=== PATIENT | male | born 1955 | race Caucasian/White ===

== ENCOUNTER 2019-04-27 11:51 | Emergency (ER) | payer MEDICARE, OTHER ==
[~2019-04-27] VITALS: Ht 185.4 cm; Wt 109.3 kg
--- NOTE | 2019-04-27 12:07 | NUR ---
PT BIB SELF C/O RUE SHOOTING PAIN, NUMBNESS TO FINGERS X 2 DAYS. PT IS AAOX4, NOT IN RESPIRATORY DISTRESS, HOOKED TO MONITOR, KEPT RESTED AND COMFORTABLE, WILL CONTINUE TO MONITOR.
--- NOTE | 2019-04-27 12:15 | NUR ---
SEEN AND EXAMINED BY JAKI LOGAN
[2019-04-27] MEDS ORDERED: IBUPROFEN 600 MG TABLET PO ONE ×2 (12:19→12:30)
--- NOTE | 2019-04-27 12:20 | NUR ---
IV LINE ESTABLISHED, BLOOD DRAWN AND SENT TO LAB.
[2019-04-27 12:31] LABS: BASOPHILS # (AUTO) 0.1 /CMM (0.0-0.2); EOSINOPHILS % (AUTO) 2.8 % (0.0-6.0); HEMATOCRIT 41 % (39-51); HEMOGLOBIN 13.4 g/dL (13.5-17.5); LYMPHOCYTES # (AUTO) 1.2 /CMM (0.8-4.8); LYMPHOCYTES % (AUTO) 20.6 % (20.0-44.0); MEAN CORPUSCULAR HGB CONC 32 g/dl (31.0-36.0); MEAN CORPUSCULAR VOLUME 84 fL (80-96); MONOCYTES # (AUTO) 0.4 /CMM (0.1-1.30); MONOCYTES % (AUTO) 6.2 % (2.0-12.0); NEUTROPHILS # (AUTO) 4.2 /CMM (1.8-8.9); NEUTROPHILS % (AUTO) 69.4 % (43.0-81.0); PLATELET COUNT (AUTO) 217 /CMM (150-450); RED BLOOD CELL COUNT(AUTO) 4.93 MIL/uL (4.5-6.0)
[2019-04-27 12:39] LABS: CALCIUM, SERUM 8.6 mg/dL (8.5-10.1); CARBON DIOXIDE 28 mmol/L (21-32); CHLORIDE 95 mmol/L (98-107); CREATININE 1.2 mg/dL (0.6-1.3); GLUCOSE 114 mg/dL (74-106); SODIUM SERUM 131 mmol/L (136-145); UREA NITROGEN, BLOOD 13 mg/dL (7-18)
--- NOTE | 2019-04-27 12:41 | NUR ---
PT IS WHEELED TO CT SCAN VIA [facility].
[2019-04-27 12:50] LABS: ALANINE AMINOTRANSFERASE 32 U/L (12-78); ALBUMIN 3.5 g/dL (3.4-5.0); ALKALINE PHOSPHATASE 111 U/L (46-116); ASPARTATE AMINOTRANSFERASE 80 U/L (15-37); BILIRUBIN,DIRECT 0.1 mg/dL (0.0-0.2); BILIRUBIN,TOTAL 0.4 mg/dL (0.2-1.0); TOTAL PROTEIN, SERUM 7.1 g/dL (6.4-8.2)
[2019-04-27] MEDS ORDERED: IV NS 0.9% 1,000 ML BAG IV ONE (13:00)
[2019-04-27] MEDS ORDERED: TRAMADOL HCL 50 MG TABLET PO ONE (13:30)
[2019-04-27] MEDS ORDERED: TRAMADOL HCL 50 MG TABLET ONE (13:31)
[2019-04-27 14:09] VITALS: BP 128/81
--- NOTE | 2019-04-27 14:09 | NUR ---
IV removed. Catheter intact and site benign. Pressure and 4x4 applied to site. No bleeding noted. Patient discharged to home in stable condition. Written and verbal after care instructions given. Patient verbalizes understanding of instruction.
== END 2019-04-27 14:11 | disposition home or self-care (01) ==
LOC: ER 11:56
DX: M54.12 Radiculopathy, cervical region (principal); Z88.6 Allergy status to analgesic agent
CPT/HCPCS: 36415; 71045; 72050; 80048; 80076; 84484; 85025; 93005; 99285; J7030

== ENCOUNTER 2019-04-28 10:17 | Emergency (ER) | payer MEDICARE, OTHER ==
[~2019-04-28] VITALS: Ht 185.4 cm; Wt 108.9 kg
[2019-04-28 10:20] VITALS: BP 146/87
[2019-04-28] MEDS ORDERED: LORAZEPAM INJ 2 MG/ML VIAL ONE (11:27)
[2019-04-28] MEDS ORDERED: KETOROLAC TROMETHAMINE INJ 60 MG/2 ML VIAL IM ONE ×2 (11:27→11:30)
[2019-04-28] MEDS ORDERED: LORAZEPAM INJ 2 MG/ML VIAL IM ONE (11:30)
== END 2019-04-28 11:43 | disposition home or self-care (01) ==
LOC: ER 10:18
DX: M54.12 Radiculopathy, cervical region (principal); F32.9 Major depressive disorder, single episode, unspecified; Z91.048 Other nonmedicinal substance allergy status
CPT/HCPCS: 96372 ×2; 99284; J1885; J2060

== ENCOUNTER 2020-01-05 16:08 | Emergency (ER) | payer MEDICARE, OTHER ==
[~2020-01-05] VITALS: Ht 182.9 cm; Wt 99.8 kg
[2020-01-05 16:08] VITALS: BP 127/82
[2020-01-05] MEDS ORDERED: DOCUSATE SODIUM LIQ 100 MG/10 ML UDC ONE (16:29)
[2020-01-05] MEDS ORDERED: DOCUSATE SODIUM LIQ 100 MG/10 ML UDC NG ONE (16:30)
--- NOTE | 2020-01-05 19:05 | NUR ---
Patient discharged to home in stable condition. Written and verbal after care instructions given. Patient verbalizes understanding of instruction.
== END 2020-01-05 19:04 | disposition home or self-care (01) ==
LOC: ER 16:11
DX: H66.91 Otitis media, unspecified, right ear (principal); H61.21 Impacted cerumen, right ear; F32.9 Major depressive disorder, single episode, unspecified; Z88.8 Allergy status to other drugs, medicaments and biological substances

== ENCOUNTER 2020-03-21 04:50 | Emergency (ER) | payer MEDICARE, OTHER ==
[~2020-03-21] VITALS: Ht 188 cm; Wt 104.3 kg
[2020-03-21 05:22] VITALS: BP 155/83
--- NOTE | 2020-03-21 05:23 | NUR ---
PT AAOX4. BIBSELF C/O R EAR PAIN FOR PAST 2 MONTHS, BECAME WORSE X3 DAYS, TODAY WAS THE WORST PER PT. WAS SEEN AT [facility] ER FOR THE SAME COMPLAINT IN DEC 2019. PT WAS PX CIPRO, STILL HAS PAIN. MD AT BEDSIDE FOR EVAL. AWAITING ORDERS.
--- NOTE | 2020-03-21 05:41 | NUR ---
Patient discharged to home in stable condition. Written and verbal after care instructions given. Patient verbalizes understanding of instruction and RX.
== END 2020-03-21 05:42 | disposition home or self-care (01) ==
LOC: ER 04:54
DX: H66.91 Otitis media, unspecified, right ear (principal); F32.9 Major depressive disorder, single episode, unspecified; Z88.8 Allergy status to other drugs, medicaments and biological substances

== ENCOUNTER 2021-02-02 21:47 | Emergency (ER) | payer MEDICARE, MEDICAID ==
[~2021-02-02] VITALS: Ht 185.4 cm; Wt 111.1 kg
--- NOTE | 2021-02-02 22:16 | NUR ---
BIBS. LLQ ABD PAIN X 3 DAYS. -N/-V/-D. LAST BM THIS MORNING. PATIENT ALERT AND ORIENTED X3. AMBULATORY WITH NON LABORED BREATHING. PATIENT PLACED ON BED 09, ON MONITOR AND POX.
[2021-02-02] MEDS ORDERED: MORPHINE SULFATE INJ 2 MG/ML DISP.SYRIN ONE (22:37)
[2021-02-02] MEDS ORDERED: ONDANSETRON HCL/PF 4 MG/2 ML VIAL ONE (22:37)
--- NOTE | 2021-02-02 22:42 | NUR ---
BLOOD COLLECTED AND SENT TO LAB
[2021-02-02 22:44] LABS: BASOPHILS % (AUTO) 0.2 % (0.0-2.0); EOSINOPHILS % (AUTO) 2.6 % (0.0-6.0); HEMATOCRIT 39 % (39-51); HEMOGLOBIN 12.7 g/dL (13.5-17.5); LYMPHOCYTES # (AUTO) 1.7 K/uL (0.8-4.8); LYMPHOCYTES % (AUTO) 22.4 % (20.0-44.0); MEAN CORPUSCULAR HGB CONC 33 g/dl (31.0-36.0); MEAN CORPUSCULAR VOLUME 84 fL (80-96); MONOCYTES # (AUTO) 0.6 K/uL (0.1-1.30); MONOCYTES % (AUTO) 8.3 % (2.0-12.0); NEUTROPHILS # (AUTO) 5.1 K/uL (1.8-8.9); NEUTROPHILS % (AUTO) 66.5 % (43.0-81.0); PLATELET COUNT (AUTO) 214 K/uL (150-450); RED BLOOD CELL COUNT(AUTO) 4.62 MIL/uL (4.5-6.0); WHITE BLOOD COUNT (AUTO) 7.6 K/uL (4.3-11.0)
--- NOTE | 2021-02-02 22:56 | NUR ---
URINE SENT TO LAB
[2021-02-02 22:59] LABS: CALCIUM, SERUM 8.7 mg/dL (8.5-10.1); CREATININE 1.1 mg/dL (0.6-1.3); POTASSIUM 4.6 mmol/L (3.5-5.1)
[2021-02-02] MEDS ORDERED: MORPHINE SULFATE INJ 2 MG/ML DISP.SYRIN IV ONE (23:00)
[2021-02-02] MEDS ORDERED: ONDANSETRON HCL/PF - ER 4 MG/2 ML VIAL IV ONE (23:00)
[2021-02-02 23:16] LABS: ALBUMIN 3.6 g/dL (3.4-5.0); BILIRUBIN,DIRECT 0.1 mg/dL (0.0-0.2); BILIRUBIN,TOTAL 0.4 mg/dL (0.2-1.0); TOTAL PROTEIN, SERUM 7.6 g/dL (6.4-8.2)
[2021-02-02 23:19] LABS: BILIRUBIN,URINE Negative (NEGATIVE); COLOR,URINE YELLOW (YELLOW); LEUKOCYTE ESTERASE ,URINE Trace (NEGATIVE); NITRITE, URINE Negative (NEGATIVE); PROTEIN,URINE Negative (NEGATIVE); UGLUCOSE Negative (NEGATIVE); UROBILINOGEN,URINE 0.2 EU/dL (0.2)
[2021-02-02 23:24] LABS: BACTERIA,URINE Few /HPF (None Seen); SQUAMOUS EPITHELIAL CELL,UR Few /HPF (None Seen)
[2021-02-03] MEDS ORDERED: OCTREOTIDE 50 MCG/ML AMPUL IV ONE
[2021-02-03] MEDS ORDERED: OCTREOTIDE 1,250 MCG in IV NS 0.9% 250 ML IV ONE
[2021-02-03] MEDS ORDERED: PANTOPRAZOLE 80 MG in IV NS 0.9% 100 ML IV ONE
[2021-02-03] MEDS ORDERED: PANTOPRAZOLE 80 MG in IV NS 0.9% 500 ML IV ONE
[2021-02-03 00:25] VITALS: BP 140/99
[2021-02-03] MEDS ORDERED: KETOROLAC TROMETHAMINE 15 MG/ML VIAL ONE (00:25)
--- NOTE | 2021-02-03 00:25 | NUR ---
Patient discharged to home in stable condition. Written and verbal after care instructions given. Patient verbalizes understanding of instruction.
[2021-02-03] MEDS ORDERED: IBUP-1955 PO (00:28)
[2021-02-03] MEDS ORDERED: TRAM50TA2 PO (00:28)
[2021-02-03] MEDS ORDERED: KETOROLAC TROMETHAMINE INJ 30 MG/ML VIAL IV ONE (00:30)
== END 2021-02-03 00:40 | disposition home or self-care (01) ==
LOC: ER 21:56
DX: K63.89 Other specified diseases of intestine (principal); M54.50 Low back pain, unspecified; Z88.8 Allergy status to other drugs, medicaments and biological substances
CPT/HCPCS: 36415; 74176; 80048; 80076; 81001; 83690; 84484; 85025; 93005; 96374; 96375 ×2; 99285; C9113; J1885; J2270; J2354 ×2; J2405 ×2; J7030; J7050

== ENCOUNTER 2022-03-17 23:37 | Emergency (ER) | payer MEDICARE, OTHER ==
[~2022-03-17] VITALS: Ht 185.4 cm; Wt 104.3 kg
[~2022-03-17 23:37] MED LIST: IBUP-1955 PO; TRAM50TA2 PO
[2022-03-18 00:27] VITALS: BP 123/83
--- NOTE | 2022-03-18 00:35 | NUR ---
XRAY DONE ON LEFT HAND
[2022-03-18] MEDS ORDERED: IBUPROFEN 400 MG TABLET PO ONE (01:30)
[2022-03-18] MEDS ORDERED: HYDR-3972 PO (01:33)
[2022-03-18] MEDS ORDERED: IBUPROFEN 400 MG TABLET ONE (01:47)
== END 2022-03-18 01:48 | disposition home or self-care (01) ==
LOC: ER 23:38
DX: S62.667A Nondisplaced fracture of distal phalanx of left little finger, initial encounter for closed fracture (principal); G43.909 Migraine, unspecified, not intractable, without status migrainosus; Z91.040 Latex allergy status; Z79.899 Other long term (current) drug therapy; W01.0XXA Fall on same level from slipping, tripping and stumbling without subsequent striking against object, initial encounter; Y93.89 Activity, other specified; Y92.89 Other specified places as the place of occurrence of the external cause; Y99.8 Other external cause status
CPT/HCPCS: 73140-TC